=== PATIENT | male | born 1980 | race Caucasian/White ===

== ENCOUNTER 2018-09-04 16:11 | Emergency (ER) | payer BC ==
[2018-09-04 16:35] VITALS: BP 137/74
--- NOTE | 2018-09-04 16:42 | UC ---
Lower Extremity/Ankle HPI - HPI Summary HPI Summary: 38 yo male presents with RIGHT ankle pain. He tells me that about 3 days ago he inverted his right ankle while walking. The next 2 days he RICE'd it and felt better. Yesterday had a physical therapy appointment for this and felt better. Today he was at work and was doing a lot of walking - pain has returned and this made him concerned something was wrong. Denies numbness or tingling. - History of Current Complaint Chief Complaint: UCLowerExtremity Stated Complaint: ANKLE INJURY Time Seen by Provider: 09/04/18 16:42 Hx Obtained From: Patient Onset/Duration: Sudden Onset Severity Initially: Mild Severity Currently: Mild Pain Intensity: 1 Aggravating Factor(s): Standing, Ambulation Alleviating Factor(s): Rest, Elevation Able to Bear Weight: Yes - Allergies/Home Medications Allergies/Adverse Reactions: Allergies Allergy/AdvReac Type Severity Reaction Status Date / Time bee venom protein (honey bee) Allergy Anaphylatic Verified 09/04/18 16:36 Shock Home Medications: Home Medications Calcium Carb,Gluc/Mag Ox,Gluc [Calcium Magnesium Caplet] 1 each PO DAILY [History Confirmed 09/04/18] Cholecalciferol (Vitamin D3) [Vitamin D3] 1,000 unit PO DAILY 09/04/18 [History Confirmed 09/04/18] Cod Liver Oil 1 cap PO DAILY 09/04/18 [History Confirmed 09/04/18] Cyanocobalamin (Vitamin B-12) [Vitamin B12] 2,500 mcg PO DAILY 09/04/18 [ History Confirmed 09/04/18] Folic Acid TAB* [Folvite TAB*] 1 mg PO DAILY 09/04/18 [History Confirmed ] PMH/Surg Hx/FS Hx/Imm Hx Neurological History: Seizures Psychological History: Bipolar Disorder - Surgical History Surgical History: Yes Surgery Procedure, Year, and Place: jaw surgery d/t fracture, age 10 - Social History Occupation: Employed Full-time Lives: With Family Alcohol Use: None Substance Use Type: None Smoking Status (MU): Former Smoker When Did the Patient Quit Smoking/Using Tobacco: 15 years ago Review of Systems All Other Systems Reviewed And Are Negative: Yes Constitutional: Positive: Negative Skin: Positive: Negative Respiratory: Positive: Negative Cardiovascular: Positive: Negative Musculoskeletal: Positive: Other: - Right ankle pain Neurological: Positive: Negative Psychological: Positive: Negative Physical Exam - Summary Physical Exam Summary: GENERAL: NAD. WDWN. No pain distress. SKIN: No rashes, sores, lesions, or open wounds. CHEST: No accessory muscle use. Breathing comfortably and in no distress. CV: Pulses intact PT and DP. Cap refill <2seconds MSK: RIGHT ANKLE: Mild TTP at anterior joint line. FROM without pain. Strength 5 /5. No edema or obvious bony deformities. Negative talar tilt. No increased laxity. RIGHT FOOT: Mild TTP about dorsal midfoot. NEURO: Alert. Sensations intact and symmetric B/L LEs PSYCH: Age appropriate behavior. Triage Information Reviewed: Yes Vital Signs: Initial Vital Signs Temp 98.5 F 09/04/18 16:31 Pulse 80 09/04/18 16:31 Resp 16 09/04/18 16:31 BP 137/74 09/04/18 16:31 Pulse Ox 100 09/04/18 16:31 Vital Signs Reviewed: Yes Lower Extremity Course/Dx - Course Course Of Treatment: XR: IMPRESSION: No fracture of the right foot is noted. IMPRESSION: No fracture of the right ankle is noted. Suspect sprain. He was placed in an ANA wrap and gel ankle splint. Advised to RICE and continue with physical therapy. F/u if symptoms do not improve - Differential Dx/Diagnosis Provider Diagnosis: Foot sprain Discharge - Sign-Out/Discharge Documenting (check all that apply): Patient Departure All imaging exams completed and their final reports reviewed: Yes - Discharge Plan Condition: Stable Disposition: HOME Patient Education Materials: Foot Sprain (ED) Referrals: Jimi KENDALL,Esmer Quintero [Primary Care Provider] - Additional Instructions: If you develop a fever, shortness of breath, chest pain, new or worsening symptoms - please call your PCP or go to the ED. 1) Rest, Ice, and elevate your foot as much as possible 2) Wear the gel ankle splint and ANA wrap for added support and comfort - Billing Disposition and Condition Condition: STABLE Disposition: Home
== END 2018-09-04 17:42 | disposition home or self-care (01) ==
LOC: UCEAST 16:11
DX: S93.601A Unspecified sprain of right foot, initial encounter (principal); X50.1XXA Overexertion from prolonged static or awkward postures, initial encounter; Y93.01 Activity, walking, marching and hiking; Y92.9 Unspecified place or not applicable; Z91.030 Bee allergy status; Z87.891 Personal history of nicotine dependence
CPT/HCPCS: 99213; G0463